=== PATIENT | male | born 1955 | race Caucasian/White ===

== ENCOUNTER 2020-12-26 14:14 | Inpatient (IN) | payer OTHER ==
[2020-12-26 18:01] VITALS: BMI 22.5
[2020-12-26] MEDS ORDERED: BISMUTH SUBSALICYLATE 524 MG/30 ML PO PRN (18:43)
[2020-12-26] MEDS ORDERED: MAGNESIUM CITRATE 300 ML BOTTLE PO PRN (18:43)
[2020-12-26] MEDS ORDERED: MENTHOL/PHENOL 1 EACH UD MM PRN (18:43)
[2020-12-26] MEDS ORDERED: MAGNESIUM HYDROX 2400MG/30ML ORAL SUSPENSION 30 ML CUP PO PRN (18:43)
[2020-12-26] MEDS ORDERED: NICOTINE 10 MG CARTRIDGE (INHALER) IH PRN (18:43)
[2020-12-26] MEDS ORDERED: ACETAMINOPHEN 325 MG TABLET (FP) PO PRN ×2 (18:43)
[2020-12-26] MEDS ORDERED: MAG HYDROX/AL HYDROX/SIMETH 30 ML UNIT-DOSE CUP PO PRN (18:43)
[2020-12-26] MEDS ORDERED: methaDONE HCL 10 MG TABLET (FOR DETOX USE ONLY) PO ONE (18:43)
[2020-12-26] MEDS: MELATONIN 5 MG TABLETS PO SCH (21:59)
[2020-12-26] MEDS: THIAMINE HCL 100 MG TABLET (FP) PO SCH (21:59)
[2020-12-26] MEDS: diazePAM 5 MG TABLET PO SCH (22:01)
[2020-12-27] MEDS: diazePAM 5 MG TABLET PO SCH ×4 (05:32→22:36)
[2020-12-27] MEDS ORDERED: methaDONE HCL 10 MG TABLET (FOR DETOX USE ONLY) ONE (08:50)
[2020-12-27] MEDS: PRENATAL VITAMINS W/ FOLIC ACID TABLET (FP) PO SCH (10:29)
[2020-12-27 11:01] LABS: HEMATOCRIT 40.9 % (35.4-49); HEMOGLOBIN 13.7 GM/dL (11.7-16.9); MCH 29.9 pg (25.7-33.7); MCHC 33.5 g/dl (32.0-35.9); MEAN CELL VOLUME 89.4 fl (80-96); MEAN PLT VOLUME 7.5 fl (7.5-11.1); PLATELET COUNT 253 10^3/uL (134-434); RBC 4.58 M/mm3 (4.00-5.60); RDW 15.8 % (11.9-15.9); WHITE BLOOD COUNT 5.1 K/mm3 (4.0-10.0)
[2020-12-27 11:08] LABS: BLOOD UREA NITROGEN 21.9 mg/dL (7-18)
[2020-12-27 11:09] LABS: CALCIUM 8.8 mg/dL (8.5-10.1)
[2020-12-27 11:13] LABS: BILIRUBIN,TOTAL 0.5 mg/dL (0.2-1)
[2020-12-27 11:15] LABS: TOT PROT 6.6 g/dl (6.4-8.2)
[2020-12-27] MEDS: cloNIDine HCL 0.1 MG TABLET PO PRN ×2 (19:09→23:30)
[2020-12-27] MEDS: THIAMINE HCL 100 MG TABLET (FP) PO SCH (22:36)
[2020-12-27] MEDS: MELATONIN 5 MG TABLETS PO SCH (22:36)
[2020-12-28] MEDS ORDERED: TRIMETHOBENZAMIDE HCL 200MG/2ML INJ IM PRN (06:06)
[2020-12-28] MEDS: diazePAM 5 MG TABLET PO SCH ×3 (06:29→22:23)
[2020-12-28] MEDS: cloNIDine HCL 0.1 MG TABLET PO PRN ×3 (06:32→22:24)
[2020-12-28] MEDS ORDERED: methaDONE HCL 10 MG TABLET (FOR DETOX USE ONLY) PO ONE (10:00)
[2020-12-28] MEDS: diazePAM 5 MG TABLET PO PRN (10:16)
[2020-12-28] MEDS: PRENATAL VITAMINS W/ FOLIC ACID TABLET (FP) PO SCH (10:18)
[2020-12-28] MEDS: THIAMINE HCL 100 MG TABLET (FP) PO SCH (22:22)
[2020-12-28] MEDS: MELATONIN 5 MG TABLETS PO SCH (22:22)
[2020-12-28] MEDS: IBUPROFEN 400 MG TABLET (FP) PO PRN (22:26)
[2020-12-29] MEDS: diazePAM 5 MG TABLET PO SCH ×2 (05:35→17:37)
[2020-12-29] MEDS ORDERED: methaDONE HCL 10 MG TABLET (FOR DETOX USE ONLY) ONE (09:56)
[2020-12-29] MEDS: diazePAM 5 MG TABLET PO PRN ×2 (10:10→15:09)
[2020-12-29] MEDS: PRENATAL VITAMINS W/ FOLIC ACID TABLET (FP) PO SCH (10:11)
[2020-12-29] MEDS: IBUPROFEN 400 MG TABLET (FP) PO PRN (17:39)
[2020-12-29] MEDS ORDERED: diazePAM 5 MG TABLET PO PRN (21:15)
[2020-12-29] MEDS: MELATONIN 5 MG TABLETS PO SCH (22:02)
[2020-12-29] MEDS: cloNIDine HCL 0.1 MG TABLET PO PRN (22:03)
[2020-12-29] MEDS: THIAMINE HCL 100 MG TABLET (FP) PO SCH (22:03)
[2020-12-30] MEDS ORDERED: diazePAM 5 MG TABLET PO ONE (06:00)
[2020-12-30] MEDS ORDERED: methaDONE HCL 10 MG TABLET (FOR DETOX USE ONLY) PO ONE (10:00)
[2020-12-30] MEDS: PRENATAL VITAMINS W/ FOLIC ACID TABLET (FP) PO SCH (10:08)
[2020-12-30] MEDS ORDERED: NICOTINE POLACRILEX 2 MG GUM BUC PRN (11:42)
[2020-12-30] MEDS: cloNIDine HCL 0.1 MG TABLET PO PRN ×2 (14:46→17:56)
[2020-12-30] MEDS: IBUPROFEN 400 MG TABLET (FP) PO PRN (14:46)
[2020-12-30] MEDS: THIAMINE HCL 100 MG TABLET (FP) PO SCH (22:34)
[2020-12-30] MEDS: MELATONIN 5 MG TABLETS PO SCH (22:34)
[2020-12-31] MEDS: PRENATAL VITAMINS W/ FOLIC ACID TABLET (FP) PO SCH (10:20)
[2020-12-31 13:17] VITALS: BP 129/66; PULSE 58; TEMP 96.4
== END 2020-12-31 14:38 | disposition other institution (70) | DRG 773 ==
LOC: YASAS 14:14 → Y3N 19:35
PROVIDERS: ADMIT Allergy & Immunology; ATTEND Allergy & Immunology
PROC: HZ2ZZZZ Detoxification Services for Substance Abuse Treatment (ICD-10-PCS; principal; 2020-12-26)
DX: F11.23 Opioid dependence with withdrawal (principal); F10.230 Alcohol dependence with withdrawal, uncomplicated; F14.20 Cocaine dependence, uncomplicated; F13.20 Sedative, hypnotic or anxiolytic dependence, uncomplicated; F17.210 Nicotine dependence, cigarettes, uncomplicated; G47.00 Insomnia, unspecified; Z86.19 Personal history of other infectious and parasitic diseases; Z56.0 Unemployment, unspecified; Z59.00 Homelessness unspecified
CPT/HCPCS: 36415; 80053; 85027; 86780; C9803; J0735; U0003; U0005

== ENCOUNTER 2020-12-31 14:48 | Inpatient (IN) | payer OTHER ==
[2020-12-31] MEDS ORDERED: LOPERAMIDE HCL 2 MG CAPSULE PO PRN (17:18)
[2020-12-31] MEDS ORDERED: P-EPHED 60MG/TRIPROLIDI 2.5MG TABLET PO PRN (17:18)
[2020-12-31] MEDS ORDERED: ACETAMINOPHEN 325 MG TABLET (FP) PO PRN (17:18)
[2020-12-31] MEDS ORDERED: NICOTINE 10 MG CARTRIDGE (INHALER) IH PRN (17:18)
[2020-12-31] MEDS ORDERED: MAGNESIUM CITRATE 300 ML BOTTLE PO PRN (17:18)
[2020-12-31] MEDS ORDERED: guaiFENesin 200 MG/10 ML 10 ML UNIT-DOSE CUPS PO PRN (17:18)
[2020-12-31] MEDS ORDERED: MENTHOL/PHENOL 1 EACH UD MM PRN (17:18)
[2020-12-31] MEDS ORDERED: MAGNESIUM HYDROX 2400MG/30ML ORAL SUSPENSION 30 ML CUP PO PRN (17:18)
[2020-12-31] MEDS: MAG HYDROX/AL HYDROX/SIMETH 30 ML UNIT-DOSE CUP PO PRN (18:13)
[2020-12-31] MEDS: MELATONIN 5 MG TABLETS PO PRN (21:49)
[2020-12-31] MEDS: IBUPROFEN 400 MG TABLET (FP) PO PRN (21:49)
[2020-12-31] MEDS: THIAMINE HCL 100 MG TABLET (FP) PO SCH (21:49)
[2020-12-31] MEDS ORDERED: QUEtiapine FUMARATE 50 MG TABLET PO ONE (23:00)
[2021-01-01] MEDS: PRENATAL VITAMINS W/ FOLIC ACID TABLET (FP) PO SCH (09:50)
[2021-01-01] MEDS: hydrOXYzine PAMOATE 25 MG CAPSULE (FP) PO PRN ×3 (09:52→21:18)
[2021-01-01] MEDS: IBUPROFEN 400 MG TABLET (FP) PO PRN ×2 (09:52→14:46)
[2021-01-01] MEDS: cloNIDine HCL 0.1 MG TABLET PO PRN (14:45)
[2021-01-01] MEDS ORDERED: QUEtiapine FUMARATE 25 MG TABLET ONE (21:17)
[2021-01-01] MEDS: MELATONIN 5 MG TABLETS PO PRN (21:17)
[2021-01-01] MEDS: GABAPENTIN 100 MG CAPSULE PO SCH (21:18)
[2021-01-01] MEDS: THIAMINE HCL 100 MG TABLET (FP) PO SCH (21:18)
[2021-01-01] MEDS ORDERED: QUEtiapine FUMARATE 50 MG TABLET PO SCH (22:00)
[2021-01-01] MEDS ORDERED: traZODone HCL 100 MG TABLET (FP) PO SCH (22:00)
[2021-01-02] MEDS: IBUPROFEN 400 MG TABLET (FP) PO PRN ×2 (06:25→21:58)
[2021-01-02] MEDS: GABAPENTIN 100 MG CAPSULE PO SCH (06:25)
[2021-01-02] MEDS: cloNIDine HCL 0.1 MG TABLET PO PRN (06:26)
[2021-01-02] MEDS: PRENATAL VITAMINS W/ FOLIC ACID TABLET (FP) PO SCH (10:21)
[2021-01-02] MEDS ORDERED: BUPRENORPHINE/NALOXONE 2 MG/0.5 MG FILM PACKET SL ONE ×2 (14:00→18:00)
[2021-01-02] MEDS: THIAMINE HCL 100 MG TABLET (FP) PO SCH (21:56)
[2021-01-02] MEDS: traZODone HCL 100 MG TABLET (FP) PO SCH (21:58)
[2021-01-03] MEDS: BUPRENORPHINE/NALOXONE 4 MG/1 MG FILM PACKET SL SCH ×2 (10:03→17:29)
[2021-01-03] MEDS: PRENATAL VITAMINS W/ FOLIC ACID TABLET (FP) PO SCH (10:03)
[2021-01-03] MEDS: traZODone HCL 100 MG TABLET (FP) PO SCH (21:51)
[2021-01-03] MEDS: THIAMINE HCL 100 MG TABLET (FP) PO SCH (21:51)
[2021-01-03] MEDS: IBUPROFEN 400 MG TABLET (FP) PO PRN (22:14)
[2021-01-04] MEDS: BUPRENORPHINE/NALOXONE 8 MG/2 MG FILM PACKET SL SCH ×2 (10:07→18:02)
[2021-01-04] MEDS: PRENATAL VITAMINS W/ FOLIC ACID TABLET (FP) PO SCH (10:07)
[2021-01-04] MEDS: THIAMINE HCL 100 MG TABLET (FP) PO SCH (21:40)
[2021-01-04] MEDS: hydrOXYzine PAMOATE 25 MG CAPSULE (FP) PO PRN (21:40)
[2021-01-04] MEDS: traZODone HCL 100 MG TABLET (FP) PO SCH (21:40)
[2021-01-04] MEDS: IBUPROFEN 400 MG TABLET (FP) PO PRN (21:42)
[2021-01-05] MEDS: BUPRENORPHINE/NALOXONE 8 MG/2 MG FILM PACKET SL SCH ×2 (10:17→18:00)
[2021-01-05] MEDS: PRENATAL VITAMINS W/ FOLIC ACID TABLET (FP) PO SCH (10:17)
[2021-01-05] MEDS: traZODone HCL 100 MG TABLET (FP) PO SCH (21:25)
[2021-01-05] MEDS: THIAMINE HCL 100 MG TABLET (FP) PO SCH (21:25)
[2021-01-05] MEDS: IBUPROFEN 400 MG TABLET (FP) PO PRN (21:25)
[2021-01-05] MEDS: hydrOXYzine PAMOATE 25 MG CAPSULE (FP) PO PRN (21:25)
[2021-01-06] MEDS: BUPRENORPHINE/NALOXONE 8 MG/2 MG FILM PACKET SL SCH ×2 (09:56→17:51)
[2021-01-06] MEDS: PRENATAL VITAMINS W/ FOLIC ACID TABLET (FP) PO SCH (09:56)
[2021-01-06] MEDS: hydrOXYzine PAMOATE 25 MG CAPSULE (FP) PO PRN ×2 (14:43→21:05)
[2021-01-06] MEDS: traZODone HCL 100 MG TABLET (FP) PO SCH (21:03)
[2021-01-06] MEDS: THIAMINE HCL 100 MG TABLET (FP) PO SCH (21:03)
[2021-01-06] MEDS: IBUPROFEN 400 MG TABLET (FP) PO PRN (21:04)
[2021-01-06 22:15] VITALS: BMI 20.3
[2021-01-07] MEDS: PRENATAL VITAMINS W/ FOLIC ACID TABLET (FP) PO SCH (10:00)
[2021-01-07] MEDS: BUPRENORPHINE/NALOXONE 8 MG/2 MG FILM PACKET SL SCH ×2 (10:01→17:34)
[2021-01-07] MEDS: THIAMINE HCL 100 MG TABLET (FP) PO SCH (21:00)
[2021-01-07] MEDS: traZODone HCL 100 MG TABLET (FP) PO SCH (21:00)
[2021-01-07] MEDS: IBUPROFEN 400 MG TABLET (FP) PO PRN (21:00)
[2021-01-07] MEDS: hydrOXYzine PAMOATE 25 MG CAPSULE (FP) PO PRN (21:01)
[2021-01-08] MEDS: PRENATAL VITAMINS W/ FOLIC ACID TABLET (FP) PO SCH (09:55)
[2021-01-08] MEDS: BUPRENORPHINE/NALOXONE 8 MG/2 MG FILM PACKET SL SCH ×2 (09:55→17:36)
[2021-01-08] MEDS: hydrOXYzine PAMOATE 25 MG CAPSULE (FP) PO PRN (21:32)
[2021-01-08] MEDS: IBUPROFEN 400 MG TABLET (FP) PO PRN (21:32)
[2021-01-08] MEDS: THIAMINE HCL 100 MG TABLET (FP) PO SCH (21:32)
[2021-01-08] MEDS: traZODone HCL 100 MG TABLET (FP) PO SCH (21:32)
[2021-01-09] MEDS: PRENATAL VITAMINS W/ FOLIC ACID TABLET (FP) PO SCH (10:20)
[2021-01-09] MEDS: hydrOXYzine PAMOATE 25 MG CAPSULE (FP) PO PRN ×2 (10:20→21:28)
[2021-01-09] MEDS: BUPRENORPHINE/NALOXONE 8 MG/2 MG FILM PACKET SL SCH ×2 (10:20→17:52)
[2021-01-09] MEDS: traZODone HCL 100 MG TABLET (FP) PO SCH (21:28)
[2021-01-09] MEDS: IBUPROFEN 400 MG TABLET (FP) PO PRN (21:28)
[2021-01-09] MEDS: THIAMINE HCL 100 MG TABLET (FP) PO SCH (21:28)
[2021-01-10] MEDS: BUPRENORPHINE/NALOXONE 8 MG/2 MG FILM PACKET SL SCH ×2 (10:14→17:35)
[2021-01-10] MEDS: PRENATAL VITAMINS W/ FOLIC ACID TABLET (FP) PO SCH (10:14)
[2021-01-10] MEDS: IBUPROFEN 400 MG TABLET (FP) PO PRN (21:17)
[2021-01-10] MEDS: THIAMINE HCL 100 MG TABLET (FP) PO SCH (21:19)
[2021-01-10] MEDS: MAG HYDROX/AL HYDROX/SIMETH 30 ML UNIT-DOSE CUP PO PRN (21:19)
[2021-01-10] MEDS: hydrOXYzine PAMOATE 25 MG CAPSULE (FP) PO PRN (21:19)
[2021-01-10] MEDS: traZODone HCL 100 MG TABLET (FP) PO SCH (21:19)
[2021-01-11] MEDS: BUPRENORPHINE/NALOXONE 8 MG/2 MG FILM PACKET SL SCH ×2 (10:49→17:35)
[2021-01-11] MEDS: PRENATAL VITAMINS W/ FOLIC ACID TABLET (FP) PO SCH (10:49)
[2021-01-11] MEDS: IBUPROFEN 400 MG TABLET (FP) PO PRN (21:24)
[2021-01-11] MEDS: hydrOXYzine PAMOATE 25 MG CAPSULE (FP) PO PRN (21:25)
[2021-01-11] MEDS: THIAMINE HCL 100 MG TABLET (FP) PO SCH (21:25)
[2021-01-11] MEDS: traZODone HCL 100 MG TABLET (FP) PO SCH (21:25)
[2021-01-12] MEDS: PRENATAL VITAMINS W/ FOLIC ACID TABLET (FP) PO SCH (09:56)
[2021-01-12] MEDS: BUPRENORPHINE/NALOXONE 8 MG/2 MG FILM PACKET SL SCH ×2 (09:57→17:41)
[2021-01-12] MEDS: THIAMINE HCL 100 MG TABLET (FP) PO SCH (21:21)
[2021-01-12] MEDS: IBUPROFEN 400 MG TABLET (FP) PO PRN (21:21)
[2021-01-12] MEDS: traZODone HCL 100 MG TABLET (FP) PO SCH (21:21)
[2021-01-12] MEDS: hydrOXYzine PAMOATE 25 MG CAPSULE (FP) PO PRN (21:21)
[2021-01-13 07:24] VITALS: BP 115/63; PULSE 58; TEMP 97.4
[2021-01-13] MEDS ORDERED: PT OWN MED DRAWER 7, Y5N ONE (08:21)
[2021-01-13] MEDS: BUPRENORPHINE/NALOXONE 8 MG/2 MG FILM PACKET SL SCH (09:11)
[2021-01-13] MEDS: PRENATAL VITAMINS W/ FOLIC ACID TABLET (FP) PO SCH (09:11)
== END 2021-01-13 09:48 | disposition home or self-care (01) | DRG 772 ==
LOC: YASAS 14:48 → Y5N 14:49
PROVIDERS: ADMIT Allergy & Immunology; ATTEND Allergy & Immunology
PROC: HZ42ZZZ Group Counseling for Substance Abuse Treatment, Cognitive-Behavioral (ICD-10-PCS; principal; 2020-12-31)
DX: F11.20 Opioid dependence, uncomplicated (principal); F10.20 Alcohol dependence, uncomplicated; F13.20 Sedative, hypnotic or anxiolytic dependence, uncomplicated; F14.20 Cocaine dependence, uncomplicated; F17.210 Nicotine dependence, cigarettes, uncomplicated; F19.282 Other psychoactive substance dependence with psychoactive substance-induced sleep disorder; F32.A Depression, unspecified; B18.2 Chronic viral hepatitis C; Z56.0 Unemployment, unspecified; Z59.00 Homelessness unspecified
CPT/HCPCS: J0735